=== PATIENT | female | born 1970 | race Hispanic/Latino ===

== ENCOUNTER → 2022-07-11 | Outpatient (CLI) | payer BC | END | disposition home or self-care (01) | LOC: RAH 11:10 | PROVIDERS: ATTEND Internal Medicine | DX: E04.2 Nontoxic multinodular goiter (principal) | CPT/HCPCS: 76536 ==

== ENCOUNTER → 2025-08-12 | Outpatient (CLI) | payer BC ==
--- NOTE | 2025-08-12 17:57 | HMCIMG ---
EXAM: CR RIGHT KNEE, 3 VIEWS CLINICAL HISTORY: Right knee pain. COMPARISON: None provided TECHNIQUE: 3 views of the right knee were obtained. FINDINGS: Bones: A small, well-defined sclerotic lesion is seen related to the lateral femoral condyle , likely a bone island .For follow up by plain x-ray after 3 to 6 months. No fracture or subluxation. Joints: Minimal tricompartmental osteoarthritic changes are present with mild narrowing of the medial joint compartment. Soft tissues: Unremarkable. IMPRESSION: 1. A small, well-defined sclerotic lesion related to the lateral femoral condyle , likely a bone island .For follow up by plain x-ray after 3 to 6 months. 2. Minimal tricompartmental osteoarthritic changes with mild narrowing of the medial joint compartment. /Bullard
== END | disposition home or self-care (01) ==
LOC: RAH 10:27
PROVIDERS: ATTEND Internal Medicine
DX: M25.861 Other specified joint disorders, right knee (principal); M25.561 Pain in right knee
CPT/HCPCS: 73562